=== PATIENT | female | born 2000 | race African-American/Black ===

== ENCOUNTER 2019-07-22 17:32 | Emergency (ER) | payer SELFPAY ==
[2019-07-22 17:44] VITALS: BP 114/75; PULSE 73; TEMP 98.7; BMI 21.7
[2019-07-22] MEDS ORDERED: DIPHTH,PERTUSS(ACELL),TET 0.5 ML DISP.SYRIN IM ONE (17:46)
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
== END 2019-07-22 18:00 | disposition left against medical advice (07) ==
LOC: JERFT 17:32
DX: S01.01XA Laceration without foreign body of scalp, initial encounter (principal); S09.90XA Unspecified injury of head, initial encounter; Y04.2XXA Assault by strike against or bumped into by another person, initial encounter; Y93.89 Activity, other specified; Y92.89 Other specified places as the place of occurrence of the external cause
CPT/HCPCS: 99281-25